=== PATIENT | female | born 1960 ===

== ENCOUNTER 2018-10-02 18:41 | Emergency (ER) | payer OTHER ==
[2018-10-02 20:37] LABS: BASO % 0.1 % (0.0-2.0); EOS % 0.6 % (0.0-4.0); HEMOGLOBIN 13.5 g/dL (12.0-16.0); LYMPH # 0.5 K/uL (1.0-4.3); LYMPH % 6.6 % (20.0-40.0); MEAN CELL VOLUME 84.1 fl (81.0-99.0); MEAN CORPUSCULAR HEMOGLOBIN 28.3 pg (27.0-31.0); MEAN CORPUSCULAR HGB CONC 33.7 g/dL (33.0-37.0); MEAN PLATELET VOLUME 7.4 fl (7.2-11.7); MONO % 0.6 % (0.0-10.0); NEUT # 7.2 K/uL (1.8-7.0); NEUT % 92.1 % (50.0-75.0); PLATELET COUNT 277 K/uL (130-400); RBC 4.75 Mil/uL (3.80-5.20); RED CELL DISTRIBUTION WIDTH 14.7 % (11.5-14.5); WHITE BLOOD COUNT 7.8 K/uL (4.8-10.8)
--- NOTE | 2018-10-02 20:42 | ED PDOC ---
HPI: General Adult Time Seen by Provider: 10/02/18 19:30 Chief Complaint (Nursing): Fever Chief Complaint (Provider): Weakness History Per: Patient, Health And Wellness Manager (Renita #[id number]) History/Exam Limitations: no limitations Onset/Duration Of Symptoms: Days (x 6) Current Symptoms Are (Timing): Still Present Additional Complaint(s): 58 year old female with a history of high cholesterol presents to the ED for evaluation of chills and leg pain for six days. Pain is worse in left leg than her right leg. Patient also complaints of diarrhea, but denies vomiting. She reports that she takes a medication for varicose veins from [place] that she does not know the name of. Denies cough, shortness of breath and fever. Patient offers no other complaints at this time. PMD: none provided Past Medical History Reviewed: Historical Data, Nursing Documentation, Vital Signs Vital Signs: Last Vital Signs Temp 99.2 F 10/02/18 19:05 Pulse 118 H 10/02/18 19:05 Resp 20 10/02/18 19:05 BP 159/80 H 10/02/18 19:05 Pulse Ox 96 10/02/18 19:05 - Medical History PMH: Hypercholesterolemia - Surgical History Surgical History: No Surg Hx - Family History Family History: States: Unknown Family Hx - Allergies Allergies/Adverse Reactions: Allergies Allergy/AdvReac Type Severity Reaction Status Date / Time No Known Allergies Allergy Verified 10/02/18 19:05 Review of Systems ROS Statement: Except As Marked, All Systems Reviewed And Found Negative Constitutional: Positive for: Chills. Negative for: Fever Respiratory: Negative for: Cough Genitourinary Female: Negative for: Dysuria, Frequency, Incontinence, Hematuria Musculoskeletal: Positive for: Leg Pain (bilaterally; left leg worse than right) Physical Exam - Reviewed Nursing Documentation Reviewed: Yes Vital Signs Reviewed: Yes - Physical Exam Appears: Positive for: No Acute Distress Head Exam: Positive for: ATRAUMATIC, NORMAL INSPECTION, NORMOCEPHALIC Skin: Positive for: Normal Color, Warm, Dry Eye Exam: Positive for: EOMI, Normal appearance, PERRL Neck: Positive for: Normal, Painless ROM, Supple Cardiovascular/Chest: Positive for: Tachycardia (regular rhythm) Respiratory: Positive for: Normal Breath Sounds. Negative for: Wheezing, Respiratory Distress Pulses-Dorsalis Pedis (L): 2+ Pulses-Dorsalis Pedis (R): 2+ Gastrointestinal/Abdominal: Positive for: Normal Exam, Soft. Negative for: Tenderness Back: Positive for: Normal Inspection. Negative for: L CVA Tenderness, R CVA Tenderness Extremity: Positive for: Normal ROM (x 4), Tenderness (to left lower leg and be hind left knee), Swelling (mild swelling to bilateral legs). Negative for: Pedal Edema (pitting edema), Deformity Neurological/Psych: Positive for: Awake, Alert, Normal Tone, Oriented (x 3). Negative for: Motor/Sensory Deficits - Laboratory Results Result Diagrams: 10/02/18 20:25 10/02/18 20:25 - ECG O2 Sat by Pulse Oximetry: 96 (RA) Pulse Ox Interpretation: Normal Medical Decision Making Medical Decision Makin:45 MDM: workup for viral syndrome and lower extremity DVTs Labs, including D-dimer and bilateral lower extremity US Toradol for pain Reassess 22:55 D Dimer elevated. Ultrasound of bilateral lower extremities was unremarkable. Patient continues to complain of chest pain and shortness of breath. CTA PE protocol will be obtained. 01:20 Doppler US and CTA chest unremarkable. Not stable to be discharged as patient developed a fever of 102. Tylenol, IV fluids, and re-evaluate 03:33 Heart rate of 95 and O2 sat of 97. Patient to be discharged home. Most likely viral syndrome. Given follow up to outpatient clinic and advised to take Tylenol as needed. Return parameters discussed. Scribe Attestation: Documented by Juliann Mackenzie, acting as a scribe Yazan Beckford MD Provider Scribe Attestation: All medical record entries made by the Scribe were at my direction and personally dictated by me. I have reviewed the chart and agree that the record accurately reflects my personal performance of the history, physical exam, medical decision making, and the department course for this patient. I have also personally directed, reviewed, and agree with the discharge instructions and disposition. Disposition - Clinical Impression Clinical Impression: Fever in adult, Viral syndrome - Patient ED Disposition Is Patient to be Admitted: No - Disposition Referrals: [facility] [Outside] Disposition: Routine/Home Disposition Time: 03:35 Condition: IMPROVED Additional Instructions: Take Tylenol or Motrin for fever and body aches. Increase rest and drink plenty of water while symptoms last. Follow up in the outpatient clinic in one week. Instructions: Viral Syndrome (DC), When to Worry About a Fever Forms: [facility] (Guyanese) Print Language: TURKMEN
[2018-10-02 20:43] LABS: INR 1.1; PROTHROMBIN TIME 12.1 Seconds (9.8-13.1)
[2018-10-02 20:46] LABS: PARTIAL THROMBOPLASTIN TIME 29.2 Seconds (25.6-37.1)
[2018-10-02 21:07] LABS: BLOOD UREA NITROGEN 15 mg/dl (7-17); CALCIUM 9.5 mg/dL (8.4-10.2); GFR NON-AFRICAN AMERICAN > 60
[2018-10-02 21:17] LABS: B-TYPE NATRIURETIC PEPTIDE 62.2 pg/ml (0-900)
[2018-10-02 21:42] LABS: BANDS 3 % (0-2); BASOPHIL 1 % (0-2); BURR CELLS SLIGHT; EOSINOPHIL 1 % (0-7); HYPOCHROMIC SLIGHT; LYMPHOCYTE 8 % (20-50); MONOCYTE 5 % (0-10); NEUTROPHIL 82 % (42-75); PLATELET ESTIMATE NORMAL (NORMAL); TOTAL CELLS COUNTED 100; TOXIC GRANULATION PRESENT
[2018-10-02] MEDS ORDERED: Sodium Chloride 0.9% 50 ML IV ONE (23:07)
[2018-10-02] MEDS ORDERED: Iodixanol 320 MG/ML 100 ML BOTTLE IV ONE (23:07)
[2018-10-03] MEDS ORDERED: Sodium Chloride 0.9% 1,000 ML IV STA (01:25)
[2018-10-03 03:01] VITALS: BP 120/69; RESP 18
[2018-10-03 03:14] LABS: SQUAMOUS EPITHIAL 1 /hpf (0-5); URINE BACTERIA FEW (<OCC); URINE BILIRUBIN NEGATIVE (NEGATIVE); URINE BLOOD NEGATIVE (NEGATIVE); URINE CLARITY SLIGHTY-CLOUDY (Clear); URINE COLOR STRAW (YELLOW); URINE GLUCOSE (UA) NEG (NEGATIVE); URINE LEUKOCYTE ESTERASE NEG Leu/uL (Negative); URINE PROTEIN NEGATIVE (NEGATIVE); URINE UROBILINOGEN 0.2-1.0 mg/dL (0.2-1.0)
[2018-10-03 03:34] VITALS: PULSE 95; TEMP 99
[2018-10-03 03:36] VITALS: O2SAT 96
--- NOTE | 2018-10-03 12:15 | CT ---
Date of service: 10/02/2018 PROCEDURE: CT Chest with contrast (Pulmonary Angiogram) HISTORY: SOB, CP, elevated D dimer COMPARISON: October 02, 2018.. Duplex venous sonography both lower extremities. Negative study for deep vein thrombosis. TECHNIQUE: Axial computed tomography images were obtained of the chest in the pulmonary arterial phase of enhancement. Coronal and sagittal reformatted images were created and reviewed. Intravenous contrast dose: 95 cc Visipaque 320. Mean Hounsfield value in the main pulmonary artery: 188.52 Radiation dose: Total exam DLP = 376.01 mGy-cm. This CT exam was performed using one or more of the following dose reduction techniques: Automated exposure control, adjustment of the mA and/or kV according to patient size, and/or use of iterative reconstruction technique. FINDINGS: PULMONARY ARTERIES: Unremarkable. No pulmonary embolism. AORTA: No acute findings. No thoracic aortic aneurysm. No atherosclerotic calcification or mural plaque present. LUNGS: Unremarkable. No nodule, mass or pulmonary consolidation. PLEURAL SPACES: Unremarkable. No effusion or pneumothorax. HEART: Unremarkable. No cardiomegaly. No significant pericardial effusion. LYMPH NODES: No lymphadenopathy. BONES, CHEST WALL: Unremarkable. No fracture or destructive lesion OTHER FINDINGS: Hepatic steatosis. No focal masses. No intrahepatic bile duct dilatation or perihepatic ascites. IMPRESSION: No large, central pulmonary emboli detected. Based on Hounsfield unit values/opacification and qualitative aspects of this study including contributions from body habitus the examination is nondiagnostic for pulmonary emboli at and below the segmental branch vessels Additional benign and/or incidental findings described above. Concordant results (preliminary interpretation) provided by [employer]. Procedure Completed: 23:21. Preliminary Report: Interpreted and electronically signed: 00:17. Final Interpretation: 12:12. October 03, 2018.
--- NOTE | 2018-10-03 13:07 | US ---
Date of service: 10/02/2018 PROCEDURE: Bilateral lower extremity venous duplex Doppler. HISTORY: BL leg pain and swelling ,worse on left COMPARISON: None available. TECHNIQUE: Bilateral common femoral, superficial femoral, popliteal and posterior tibial veins were evaluated. Flow was assessed with color Doppler, compressibility, assessment of phasic flow and augmentation response. FINDINGS: COMMON FEMORAL VEIN: Right CFV: Unremarkable. Left CFV: Unremarkable. SUPERFICIAL FEMORAL VEIN: Right SFV: Unremarkable. Left SFV: Unremarkable. POPLITEAL VEIN: Right Popliteal: Unremarkable. Left Popliteal: Unremarkable. POSTERIOR TIBIAL VEIN: Right PTV: Unremarkable. Left PTV: Unremarkable. OTHER FINDINGS: None. IMPRESSION: No evidence of deep venous thrombosis. Concordant findings (preliminary report) provided by [facility].
--- NOTE | 2018-10-03 13:27 | RAD ---
Date of service: 10/02/2018 HISTORY: Cough. COMPARISON: October 02, 2018. CT pulmonary angiogram. TECHNIQUE: Chest PA and lateral views FINDINGS: LUNGS: No active pulmonary disease. PLEURA: No significant pleural effusion identified. No pneumothorax apparent. CARDIOVASCULAR: No aortic atherosclerotic calcification present. Normal cardiac size. No pulmonary vascular congestion. OSSEOUS STRUCTURES: No significant abnormalities. VISUALIZED UPPER ABDOMEN: Normal. OTHER FINDINGS: None. IMPRESSION: No active disease.
== END 2018-10-03 03:51 | disposition home or self-care (01) ==
LOC: H.ER 18:41
DX: B34.9 Viral infection, unspecified (principal); E78.00 Pure hypercholesterolemia, unspecified
CPT/HCPCS: 71046; 71275; 80048; 81003; 83880; 84484; 85025; 85378; 85610; 85730; 93970; 96360; 96374; 99285; J1885; J7030; Q9967